=== PATIENT | female | born 1975 | race Caucasian/White ===

== ENCOUNTER 2016-07-29 20:06 | Emergency (ER) | payer OTHER ==
[~2016-07-29] VITALS: Ht 160 cm; Wt 88.0 kg
[2016-07-29 20:46] VITALS: BP 148/95
--- NOTE | 2016-07-29 22:02 | NUR ---
PT TAKEN TO [facility]
--- NOTE | 2016-07-29 22:14 | NUR ---
40Y/F PATIENT PRESENTS TO ED WITH S/P FALL, C/O RT.THIGH PAIN X 3 DAYS . PT STATES SHE FELL 3 DAYS AGO, LANDED ON HER RT. THIGH, TODAY PAIN INCREASE. DENIES N/V/D; SKIN IS PINK/WARM/DRY, RT. THIGH BRUISE; AAOX4 WITH EVEN AND STEADY GAIT; LUNGS CLEAR BL; HR EVEN AND REGULAR; PT DENIES ANY FEVER, CP, SOB, OR COUGH AT THIS TIME; PATIENT STATES PAIN OF 8/10 AT THIS TIME; VSS; PATIENT POSITIONED FOR COMFORT; HOB ELEVATED; BEDRAILS UP X2; BED DOWN. ER MD MADE AWARE OF PT STATUS.
--- NOTE | 2016-07-29 22:56 | NUR ---
Dr. Bradley evaluating patient
--- NOTE | 2016-07-29 23:10 | NUR ---
Patient discharged with v/s stable. Written and verbal after care instructions given and explained. Patient alert, oriented and verbalized understanding of instructions. Ambulatory with steady gait. All questions addressed prior to discharge. ID band removed. Patient advised to follow up with PMD. Rx of TRAMADOL 50 MG, MOTRIN 600 MG, given. Patient educated on indication of medication including possible reaction and side effects. Opportunity to ask questions provided and answered.
--- NOTE | 2016-07-29 23:10 | NUR ---
Note kathi in EDM - 07/29/16 at 2316 by [facility] Patient discharged with v/s stable. Written and verbal after care instructions given and explained. Patient verbalized understanding. Ambulatory with steady gait. All questions addressed prior to discharge. Advised to follow up with PMD.
[2016-07-29 23:11] VITALS: BP 135/80
== END 2016-07-29 23:10 | disposition home or self-care (01) ==
LOC: MED 20:06
DX: S70.11XA Contusion of right thigh, initial encounter (principal); W19.XXXA Unspecified fall, initial encounter; Y93.9 Activity, unspecified; Y92.89 Other specified places as the place of occurrence of the external cause; Y99.8 Other external cause status

== ENCOUNTER 2017-12-08 17:16 | Emergency (ER) | payer OTHER ==
[~2017-12-08] VITALS: Ht 160 cm; Wt 88.2 kg
[2017-12-08 17:25] VITALS: BP 118/76
--- NOTE | 2017-12-08 17:28 | NUR ---
PT AMBULATES TO BED 10, REPORT GIVEN TO ZAYDA RIOS
--- NOTE | 2017-12-08 17:35 | NUR ---
PATIENT PRESENTS TO ED WITH COMPLAINTS OF SUPRAPUBIC TENDERNESS, PAINFUL URINATION, AND URGENCY/FREQUENCY. PATIENT STATES SHE VISITED A PUBLIC POOL 2 DAYS AGO AND THAT IS WHEN HER SYMPTOMS STARTED. DENIES N/V/D; SKIN IS PINK/WARM/DRY; AAOX4 WITH EVEN AND STEADY GAIT; LUNGS CLEAR BL; HR EVEN AND REGULAR; PT DENIES ANY FEVER, CP, SOB, OR COUGH AT THIS TIME; PATIENT STATES PAIN OF 8/10 AT THIS TIME; VSS; PATIENT POSITIONED FOR COMFORT; HOB ELEVATED; BEDRAILS UP X1; BED DOWN. ER MD MADE AWARE OF PT STATUS.
[2017-12-08 18:09] LABS: BILIRUBIN,URINE NEGATIVE (NEGATIVE); BLOOD, URINE 3+ (NEGATIVE); COLOR,URINE YELLOW (YELLOW); LEUKOCYTE ESTERASE ,URINE TRACE (NEGATIVE); NITRITE, URINE NEGATIVE (NEGATIVE); PH,URINE 5.5 (5.0-9.0); UGLUCOSE NEGATIVE (NEGATIVE)
[2017-12-08 18:13] LABS: APPEARANCE,URINE HAZY (CLEAR)
[2017-12-08 18:26] LABS: RBC,URINE >100 /HPF (0-5); WBC,URINE 16-25 (MOD) /HPF (0-5)
[2017-12-08 20:02] VITALS: BP 118/76
== END 2017-12-08 20:02 | disposition home or self-care (01) ==
LOC: MED 17:16
DX: N39.0 Urinary tract infection, site not specified (principal)
CPT/HCPCS: 81001; 81025; 99283